=== PATIENT | male | born 1945 | race Caucasian/White ===

== ENCOUNTER 2018-09-01 21:24 | Emergency (ER) | payer MEDICARE, BC ==
[2018-09-01] MEDS ORDERED: LIDOCAINE W/EPINEPHRINE 1% 20ML VIAL As Ordered (22:29)
[2018-09-01] MEDS: LIDOCAINE W/EPINEPHRINE 1% 20ML VIAL SC (22:30)
[2018-09-04 08:52] LABS: BEDSIDE GLUCOSE 179 MG/DL (83-110)
== END 2018-09-01 23:26 | disposition home or self-care (01) ==
LOC: M ED 21:24
DX: S01.01XA Laceration without foreign body of scalp, initial encounter (principal); W01.198A Fall on same level from slipping, tripping and stumbling with subsequent striking against other object, initial encounter; Y92.89 Other specified places as the place of occurrence of the external cause; E11.40 Type 2 diabetes mellitus with diabetic neuropathy, unspecified; I11.9 Hypertensive heart disease without heart failure; I25.10 Atherosclerotic heart disease of native coronary artery without angina pectoris; F32.9 Major depressive disorder, single episode, unspecified; K21.9 Gastro-esophageal reflux disease without esophagitis; Z79.899 Other long term (current) drug therapy; Z79.02 Long term (current) use of antithrombotics/antiplatelets; Z79.82 Long term (current) use of aspirin; Z79.84 Long term (current) use of oral hypoglycemic drugs; Z88.0 Allergy status to penicillin; Z88.8 Allergy status to other drugs, medicaments and biological substances
CPT/HCPCS: 70450

== ENCOUNTER → 2022-06-30 | Outpatient (CLI) | payer MEDICARE, BC ==
[~2022-06-30] MED LIST: AMIT25TA17 PO; AMIT50TA PO; ASPI81TA26 PO; BUME0.5T2 PO; CARV6.25 PO; CRES10TA PO; FLOM0.4C39 PO; GLIP10TA18 PO; ISOS1TAB36 PO; LOSA50TA28 PO; LYRI150C PO; MAGN400T5 PO; METF-838 PO; NEXI40CA PO; PLAV1TAB2 PO; PROS5TAB PO; SENN-53 PO; SITA50TAB PO
== END ==
LOC: M RAD 15:46
PROVIDERS: ATTEND Nurse Practitioner Adult Health
DX: R91.1 Solitary pulmonary nodule (principal); Z87.891 Personal history of nicotine dependence

== ENCOUNTER → 2023-02-09 | Outpatient (CLI) | payer MEDICARE, BC ==
[~2023-02-09] MED LIST changes: +CLOP75TA99 PO; -PLAV1TAB2 PO
== END ==
LOC: M PLAIMG 12:56
PROVIDERS: ATTEND Nurse Practitioner Adult Health
DX: R91.8 Other nonspecific abnormal finding of lung field (principal)

== ENCOUNTER → 2024-03-19 | Outpatient (CLI) | payer MEDICARE ==
[~2024-03-19] MED LIST changes: -AMIT25TA17 PO; +AMIT25TA19 PO; +FINA-48 PO; -PROS5TAB PO
== END ==
LOC: M RAD 13:27
PROVIDERS: ATTEND Nurse Practitioner Adult Health
DX: R91.8 Other nonspecific abnormal finding of lung field (principal)